=== PATIENT | male | born 2005 | race Caucasian/White ===

== ENCOUNTER 2024-10-25 03:18 | Emergency (ER) | payer BC ==
[2024-10-25 04:08] LABS: Acetaminophen Less than 10 mcg/mL (Less than 10); Alcohol 188.4 mg/dL (Less than 10); Salicylate Less than 8.0 mg/dL (Less than 8.0)
== END 2024-10-25 06:10 | disposition home or self-care (01) ==
LOC: ERS 03:18
DX: S00.93XA Contusion of unspecified part of head, initial encounter (principal); F10.129 Alcohol abuse with intoxication, unspecified; Y04.2XXA Assault by strike against or bumped into by another person, initial encounter; Y93.61 Activity, american tackle football; Y92.89 Other specified places as the place of occurrence of the external cause; Y90.6 Blood alcohol level of 120-199 mg/100 ml
CPT/HCPCS: 36415; 70450; 80307